=== PATIENT | male | born 1955 | race Caucasian/White ===

== ENCOUNTER 2016-12-06 19:52 | Inpatient (IN) ==
--- NOTE | 2016-12-06 20:20 | XRay Report ---
Chest, 2 views Comparison 11/07/2016 History is coughing The heart is normal in size. Hilar contours unchanged There are minimal patchy and linear densities in the left lung base impression: Minimal patchy left basilar infiltrate/atelectasis. Follow-up suggested PROCEDURE INTERPRETED AT [facility] DEPARTMENT OF RADIOLOGY Final Report Signed by: Dr. Cate Ortega
[2016-12-06] MEDS ORDERED: AZITHROMYCIN 250 MG TABLET PO STA (21:30)
[2016-12-06] MEDS ORDERED: cefTRIAXone 1,000 MG in SODIUM CHLORIDE 0.9% 100 ML IV STA (21:30)
--- NOTE | 2016-12-06 21:35 | Emergency Department Note ---
Arrival - Arrival Chief Complaint: Upper Respiratory Stated Complaint: shortness of breathe due to bronchitis ED Nursing Triage Note: Patient states that he has been having shortness of due to bronchitis, cough, congestion and runny nose. States that he get lighthead and becomes unable to ambulate due to shortness of breath. Patient was seen approximately 4 weeks ago in ER and by Dr. Schneider and diagnosed with acute bronchitis and sinus infection. States that he has had no improvement since then. Mode of Arrival: Ambulatory Time Seen by Provider: 12/06/16 20:07 - History of Present Illness HPI Narrative: This is a 61-year-old white male who had prostate surgery December 2015 and was intubated and says that since that time he is felt drainage in his chest. However approximately 6 weeks ago he developed a cough which has persisted since that time and which keeps him awake at night from sleep. He saw his family physician approximately 3 weeks ago and was treated with an antibiotic which was twice a day for 10 days and which he thinks was Levaquin which is because no improvement in his symptoms. He has had low-grade fever sweats and chills for the past 2 weeks. 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 His room air O2 sat has been slightly low at 95% on room air. He stopped smoking 15 years ago and has no prior lung disease. Allergies/Adverse Reactions: Allergies Allergy/AdvReac Type Severity Reaction Status Date / Time No Known Allergies Allergy Unverified 11/07/16 16:51 Home Medications: Home Medications Medication Instructions Recorded Confirmed Type Ranitidine Tab [Zantac Tab] 150 mg PO BEDTIME 12/06/16 12/06/16 History Review of System - Review of System Constitutional: Present: chills, diaphoresis, fever Eyes: Absent: redness, vision change, other Head/Ears/Nose/Throat: Present: nasal drainage. Absent: epistaxis Respiratory: Present: cough Cardiovascular: Present: dyspnea on exertion. Absent: chest pain Gastrointestinal: Absent: diarrhea, constipation Genitourinary male: Absent: dysuria, hematuria Musculoskeletal: Absent: joint swelling, lower back pain, leg pain Skin: Absent: change in color, change in hair/nails Neurological: Absent: numbness, paresthesias, confusion Psychiatric: Absent: anxiety, depression Endocrine: Absent: as per HPI, polydipsia, polyuria Hematological/Lymphatic: Absent: easy bruising, lymphadenopathy Allergic/Immunologic: Absent: urticaria, itchy eyes Medical,Surgical,& Family Hx - Medical History Gastrointestinal: History of: GERD - Social History Smoking Status: Never smoker Frequency of Alcohol Use: None Type of Drug Use: None Exam Vital Signs: Vital Signs Temperature 98.5 F 12/06/16 22:43 Pulse Rate 86 12/06/16 22:43 Respiratory Rate 18 12/06/16 22:43 Blood Pressure 132/79 12/06/16 22:43 O2 Sat by Pulse Oximetry 95 12/06/16 20:28 - Eye Eye exam: Present: PERRL, EOMI - ENT ENT exam: Present: normal exam, normal oropharynx - Neck Neck exam: Present: normal inspection, full ROM - Chest Chest inspection: Present: normal inspection - Respiratory Respiratory exam: Present: other (Rales noted bilaterally) - Cardiovascular Cardiovascular exam: Present: regular rate, normal rhythm - Abdominal Exam Abdominal exam: Present: soft, normal bowel sounds - Back Exam Back exam: Present: normal inspection, full ROM - Neurological Exam Neurological exam: Present: alert, oriented X3 - Psychiatric Psychiatric exam: Present: normal affect, normal mood - Skin Skin exam: Present: warm, dry Course Course Narrative: Because the CT scan showed nonspecific tree-in-bud interstitial inflammatory changes in both lungs consistent with bilateral, mycobacterial, fungal or viral bilateral multifocal pneumonia and because he is relatively hypoxic it seems reasonable the patient should be admitted to the hospital for pulmonary and infectious disease consultation. Results - Labs CBC & BMP: 12/06/16 21:34 12/06/16 21:34 Disposition Clinical Impression: Atypical pneumonia Additional Instructions: Because the CT scan showed nonspecific tree-in-bud interstitial inflammatory changes in both lungs consistent with bilateral, mycobacterial, fungal or viral bilateral multifocal pneumonia and because he is relatively hypoxic it seems reasonable the patient should be admitted to the hospital for pulmonary and infectious disease consultation.
[2016-12-06] MEDS ORDERED: AZITHROMYCIN 250 MG TABLET ONE (21:46)
[2016-12-06] MEDS ORDERED: cefTRIAXone 1,000 MG VIAL ONE (21:46)
[2016-12-06] MEDS ORDERED: SODIUM CHLORIDE 0.9% 100 ML IV ONE (21:47)
[2016-12-06 21:50] LABS: Basophils # 0.2 10*3/uL (0.0-0.2); Basophils % 1.6 % (0.0-0.8); Eosinophils # 0.8 10*3/uL (0.0-0.87); Eosinophils % 7.7 % (0.00-10.9); Hematocrit 43.1 VOL% (42.0-52.0); Hemoglobin 14.8 GM/DL (14.0-18.0); Immature Granulocytes % 0.3 %; Immature Granulocytes Absolute 0.03 #; Lymphocytes # 3.1 10*3/uL (1.4-4.0); Lymphocytes % 31.1 % (21.2-54.2); Mean Corpuscular HGB Conc 34.3 GM/DL (32-36); Mean Corpuscular Hemoglobin 30 PG (27-34); Mean Corpuscular Volume 87.4 FL (87-102); Mean Platelet Volume 9.4 FL (9.6-12.0); Monocytes # 0.7 10*3/uL (0.11-0.8); Neutrophils # 5.2 10*3/uL (1.4-7.4); Neutrophils % 52.3 % (38.7-73.9); Platelet Count 366 T/CUMM (130-400); Red Blood Count 4.93 MC/CUMM (3.8-5.5); Red Cell Distribution Width 12.1 % (9.3-17.3)
[2016-12-06 22:20] LABS: Alanine Aminotransferase 33 U/L (16-61); Albumin 3.3 G/DL (3.4-5.0); Alkaline Phosphatase 94 U/L (45-117); Aspartate Amino Transferase 22 U/L (0-37); Bilirubin,Total < 0.39 MG/DL (0.2-1.0); Blood Urea Nitrogen 20 MG/DL (7-18); Calcium 9.3 MG/DL (8.5-10.1); Glucose 116 MG/DL (74-106); Osmolality,Calculated 276.8 MOS/KG (273-304); Potassium 3.8 MMOL/L (3.5-5.1); Sodium 137 MMOL/L (136-145); Total Protein 7.2 G/DL (6.4-8.3)
[2016-12-06] MEDS ORDERED: ZALEPLON 5 MG CAPSULE PO PRN (23:29)
[2016-12-06] MEDS ORDERED: ONDANSETRON 4 MG/2 ML VIAL IV PRN (23:29)
[2016-12-06] MEDS ORDERED: ACETAMINOPHEN 325 MG TABLET PO PRN (23:29)
[2016-12-06] MEDS ORDERED: DOCUSATE SODIUM 100 MG CAPSULE PO PRN (23:29)
[2016-12-06] MEDS ORDERED: guaiFENesin/DM ER 600-30 MG TABLET PO PRN (23:29)
--- NOTE | 2016-12-06 23:34 | Hospitalist History & Physical ---
Assessment and Plan - Time spent with patient Time spent with patient: Greater than 30 minutes (1) Atypical pneumonia Status: Acute Assessment and plan: Continue Rocephin and Zithromax. Consult pulmonary. Follow-up blood and sputum cultures. Urine antigens for Legionella and Streptococcus. Pro-calcitonin ordered. Patient has failed outpatient antibiotic therapy with Levaquin by his primary care physician. Solu-Medrol has been added. Further recommendations depend on his response to therapy. Current Visit: Yes History of Present Illness Chief complaint: dyspnea, cough, fever/ chills History of present illness: Mr. Crump is a 61 year old male with a history of gastro-esophageal reflux disease treated with Zantac at night, presents to the emergency department with a 6 week history of shortness of breath and productive cough. Patient reports no previous lung problems. He states that his symptoms began after a stormy evening. He began having productive sputum and shortness of breath that worsens with exertion. Over the course of the last month he was seen in the emergency department and treated with steroids and antibiotics by his primary care physician as an outpatient. He has had a chest x-ray as an outpatient and today was seen in the emergency department with complaints of night sweats and continued cough with dyspnea. The patient reports every time he takes in a deep breath he has to cough. He also reports a feeling of tightness in his chest. He denies any sick contacts. He is unsure which antibiotic he was prescribed as an outpatient by his physician but notes that it was twice a day and lasted for 10 days. He reports completing a full course of antibiotics approximately [address] scan of the chest performed today in the emergency department is grossly abnormal. The patient has continued wheezing and rhonchi bilaterally. I was asked to admit the patient for further evaluation workup of his atypical pneumonia that has failed outpatient therapy. Home medications were reviewed and reconciled. He is a full code. Home Medications Medication Instructions Recorded Confirmed Type Ranitidine Tab [Zantac Tab] 150 mg PO BEDTIME 12/06/16 12/06/16 History Allergies Allergy/AdvReac Type Severity Reaction Status Date / Time No Known Allergies Allergy Unverified 11/07/16 16:51 Medical,Surgical,& Family Hx - Medical History Gastrointestinal: History of: GERD - Surgical History Reproductive Surgeries: Surgical HX of;: Prostate Surgery (For prostate cancer performed by Dr. Dawson) - Family History Family History: Reports;: Family Heart Disease Additional Family History: The patient is unsure of his family history due to being in foster care as a young child - Social History Smoking Status: Former smoker (Patient smoked approximately 1 pack per day for approximately 20-25 years.) Have you smoked in the last 12 months: No Frequency of Alcohol Use: None Type of Drug Use: None Marital Status: Lives With:: Spouse Functional capacity: independent ambulation 12 point system: reviewed and no additional remarkable complaints except as stated - Constitutional Constitutional: Present: as per HPI, night sweats - Respiratory Respiratory: Present: cough, dyspnea on exertion, wheezing Exam - Constitutional Vitals: Period Temp Pulse Resp BP Sys/Hazel Pulse Ox Last 24 Hr 98.5 F-99.1 F 86-107 18-22 124-135/63-95 95-95 Exam: Constitutional System: Mild distress. No tremulousness. Head: Normocephalic, atraumatic. Ears, Nose and Throat System: No pain or tenderness. No epistaxis or discharge Eyes System: Pupils equal, round, and reactive. Extraocular muscles intact. Neck: Supple, without adenopathy, No jugular venous distention. No thyromegaly, neck mass, or prior surgery apparent. Respiratory System: Chest with coarse rhonchi and wheezing bilaterally to auscultation. Cardiovascular System: Heart with regular rate and rhythm. No murmur. GI System: Abdomen soft, nontender. Normo active bowel sounds present. Musculoskeletal System: limbs with no pedal edema. Full distal pulses. Normal capillary refill. Neurological System: No discernable sensory deficit. No aphasia Psychiatric System: Conversation is rational Results - Labs CBC & BMP: 12/06/16 21:34 12/06/16 21:34 Lab Results: I have reviewed the past 24 hour labs - Diagnostic Findings Procedure: Chest x-ray: image reviewed by me, report reviewed by me, CT - chest : image reviewed by me, pending
[2016-12-07] MEDS: SODIUM CHLORIDE 0.9% 1,000 ML IV SCH ×2 (01:00→09:15)
[2016-12-07] MEDS: methylPREDNISolone SOD SUC 125 MG/2 ML VIAL IV SCH ×4 (01:03→18:54)
[2016-12-07] MEDS: ALBUTEROL/IPRATROPIUM 3 ML NEB RESP TX SCH ×4 (02:19→20:19)
[2016-12-07 06:10] LABS: Basophils # 0.1 10*3/uL (0.0-0.2); Basophils % 1.1 % (0.0-0.8); Eosinophils # 0.1 10*3/uL (0.0-0.87); Eosinophils % 1.3 % (0.00-10.9); Hematocrit 41.6 VOL% (42.0-52.0); Hemoglobin 14.1 GM/DL (14.0-18.0); Immature Granulocytes % 0.7 %; Immature Granulocytes Absolute 0.05 #; Lymphocytes % 13.5 % (21.2-54.2); Mean Corpuscular HGB Conc 33.9 GM/DL (32-36); Mean Corpuscular Hemoglobin 30 PG (27-34); Mean Corpuscular Volume 88.3 FL (87-102); Monocytes # 0.2 10*3/uL (0.11-0.8); Monocytes % 2.4 % (1.7-12.7); Neutrophils # 6.2 10*3/uL (1.4-7.4); Platelet Count 366 T/CUMM (130-400); Red Blood Count 4.71 MC/CUMM (3.8-5.5); Red Cell Distribution Width 12.3 % (9.3-17.3); White Blood Count 7.6 T/CUMM (4-12)
[2016-12-07 06:55] LABS: Calcium 9.7 MG/DL (8.5-10.1); Magnesium 2.3 MG/DL (1.8-2.4); Osmolality,Calculated 278.7 MOS/KG (273-304); Potassium 4.6 MMOL/L (3.5-5.1)
--- NOTE | 2016-12-07 07:21 | CT Report ---
CT chest pulmonary embolism Indication: Cough, shortness of breath with history of malignancy Comparison: None available Technique: Axial CT imaging of the chest is performed with intravenous contrast. Contrast dose is 80 cc of Omnipaque 350. Findings: No thrombus or other abnormality is identified in the pulmonary arteries or veins. The pulmonary vessel caliber is within normal limits. The heart, mediastinum and great vessels appear within normal limits. Small amounts of scattered diverticular nodular density are present in both lower lungs there is mild bronchial prominence. Lung parenchyma shows no evidence of airspace disease or abnormal density. No effusion or pneumothorax is present. Impression: No evidence of pulmonary thromboembolism increased interstitial reticular-nodular densities especially in the lower lungs, could indicate tendinitis/early multifocal pneumonia. This CT exam was performed using one or more the following dose reduction techniques: Automated exposure control, adjustment of the MA and/or KV according to patient size, or use of iterative reconstruction technique. PROCEDURE INTERPRETED AT [facility] DEPARTMENT OF RADIOLOGY Final Report Signed by: Dr. Gonzalo Rodriguez
--- NOTE | 2016-12-07 07:21 | XRay Report ---
Exam: XR chest 1V portable Date: 12/07/2016 4:00 AM Indication: Shortness of breath Comparison: 12/06/2016 Technical: AP Findings: The heart, mediastinum and bony structures reveal no acute findings. A few reticular nodular densities are present bilaterally in the lung owens. Impression: 1. No acute cardiopulmonary pathology. PROCEDURE INTERPRETED AT [facility] DEPARTMENT OF RADIOLOGY Final Report Signed by: Dr. Oliverio Malave
[2016-12-07] MEDS: PANTOPRAZOLE 40 MG TABLET PO SCH (09:12)
[2016-12-07] MEDS: ENOXAPARIN 40 MG/0.4 ML SYRINGE SUBCUT SCH (09:13)
--- NOTE | 2016-12-07 11:16 | Hospitalist Progress Note ---
Assessment and Plan - Time spent with patient Time spent with patient: Less than 30 minutes (1) GERD (gastroesophageal reflux disease) Status: Acute Assessment and plan: 61-year-old white male with history of GERD treated with Zantac admitted by the hospitalist service on 12/06/2016 with atypical pneumonia that failed outpatient antibiotic therapy with Levaquin. Patient continues to cough and is keeping him from sleeping well. Will try Robitussin with codeine to see if this will help. Patient is on duo nebs, methylprednisone, Zithromax, and Rocephin. For his GERD he has been restarted on his home medication. Patient has had mildly elevated blood sugars but this is most likely due to his the steroids. Will go ahead and check a hemoglobin A1c just in case. Patient is eating and drinking well so INT is IV and stop his IV fluids for now. Dr. Barragan will see and examine patient and further recommendations to follow. Current Visit: Yes (2) Hyperglycemia Status: Acute Current Visit: Yes (3) Atypical pneumonia Status: Acute Current Visit: Yes Hospitalist: Subjective Interval history: Patient feels about the same. He continues to have a hacking cough with some sputum production frequently. Patient states his has not slept in 3 weeks due to this cough. Exam - Constitutional Vitals: Period Temp Pulse Resp BP Sys/Hazel Pulse Ox Last 24 Hr 97.2 F-99.1 F 70-107 16-22 109-136/63-95 92-99 Exam: 61-year-old white male, mild distress due to coughing, alert and oriented Chest with bilateral wheezing and rhonchi CV regular rate and rhythm Abdomen soft and nontender Extremities no edema Results - Labs CBC & BMP: 12/07/16 05:06 12/07/16 05:06 Lab Results: I have reviewed the past 24 hour labs - Diagnostic Findings Procedure: Chest x-ray: report reviewed by me (. X-ray this morning shows no acute process), CT - chest: report reviewed by me (No PE but increased interstitial reticular nodular densities especially in the lower lungs indicating pneumonia)
[2016-12-07] MEDS: FAMOTIDINE 20 MG TABLET PO SCH (21:00)
[2016-12-08] MEDS: ALBUTEROL/IPRATROPIUM 3 ML NEB RESP TX SCH ×4 (00:32→20:51)
[2016-12-08] MEDS: methylPREDNISolone SOD SUC 125 MG/2 ML VIAL IV SCH ×4 (01:18→19:00)
[2016-12-08] MEDS: PANTOPRAZOLE 40 MG TABLET PO SCH (09:24)
[2016-12-08] MEDS: ENOXAPARIN 40 MG/0.4 ML SYRINGE SUBCUT SCH (09:25)
--- NOTE | 2016-12-08 11:16 | EKG Report ---
Stationary ECG Study [facility] Test Date: 12/08/2016 11:15:18 AM Pat Name: ANTHONY GRANT Department: Room: 326 Gender: M Director Of Group Sales: YOLANDA : 1955 Requested by: Cris Padilla Order Number: [id number] Reading MD: PRATEEK DILL Intervals [place] Rate: 112 P: 78 [place]: 140 QRS: 81 QRSD: 91 T: 74 QT: 318 QTc: 385 Interpretive Statements SINUS TACHYCARDIA ABNORMAL RHYTHM INCOMPLETE RIGHT BUNDLE BRANCH BLOCK Electronically Signed On 12-09-16 18:40:16 CDT by PRATEEK DILL [email or web address]
[2016-12-08] MEDS: guaiFENesin/CODEINE 5 ML LIQUID PO PRN ×2 (13:32→21:20)
--- NOTE | 2016-12-08 13:49 | Hospitalist Progress Note ---
Assessment and Plan - Time spent with patient Time spent with patient: Less than 30 minutes (1) GERD (gastroesophageal reflux disease) Status: Acute Assessment and plan: 61-year-old white male with history of GERD treated with Zantac admitted by the hospitalist service on 12/06/2016 with atypical pneumonia that failed outpatient antibiotic therapy with Levaquin. Patient continues to cough and is keeping him from sleeping well. Will try Robitussin with codeine to see if this will help. Patient is on duo nebs, methylprednisone, Zithromax, and Rocephin. For his GERD he has been restarted on his home medication. Patient has had mildly elevated blood sugars but this is most likely due to his the steroids. Will go ahead and check a hemoglobin A1c just in case. Patient is eating and drinking well so INT is IV and stop his IV fluids for now. Dr. Barragan will see and examine patient and further recommendations to follow. 12/08/2016 patient does feel and look a little bit better today. He still has some mild rails in the deep lung bases but is much improved from yesterday. He was tachycardic and EKG was obtained that shows sinus tachycardic with normal rhythm. He feels it is from the breathing treatments making his heart race. He is afebrile and his vital signs are stable. Patient is negative for flu and blood cultures are negative. His sputum culture is showing normal lyndsey at 24 hours. Patient is on Zithromax, ceftriaxone and Solu-Medrol. With this tachycardia will switch his duonebs to Xopenex. Dr. Ochoa from pulmonary will see the patient today. Patient's blood sugars have been mildly elevated but he is on steroids. His hemoglobin A1c though was 6.9. this most likely can be controlled by diet. Will get diabetes education to speak with him. Dr. Barragan will see and examine patient and further recommendations to follow. Current Visit: Yes (2) Hyperglycemia Status: Acute Current Visit: Yes (3) Atypical pneumonia Status: Acute Current Visit: Yes Hospitalist: Subjective Interval history: Patient states he does feel a little bit better today. His said he does not look quite as peaked as he did yesterday. He states he is still coughing but he has not taken any of the cough medicine with codeine. He agrees that he will try it. Patient is concerned about a "mold" pneumonia. He says the air conditioner at his work has a bunch of mold in it and he breathes it in all day. Exam - Constitutional Vitals: Period Temp Pulse Resp BP Sys/Hazel Pulse Ox Last 24 Hr 97.3 F-98.4 F 81-134 17-20 87-156/51-87 90-99 Exam: 61-year-old white male, mild distress due to coughing, alert and oriented Chest with bilateral wheezing and rhonchi CV tachycardic but regular Abdomen soft and nontender Extremities no edema Results - Labs CBC & BMP: 12/07/16 05:06 12/07/16 05:06 Lab Results: I have reviewed the past 24 hour labs - EKG EKG results: sinus rhythm EKG shows: tachycardia
[2016-12-08] MEDS ORDERED: ALBUTEROL/IPRATROPIUM 3 ML NEB RESP TX PRN (13:52)
[2016-12-08] MEDS ORDERED: ALBUTEROL 2.5 MG/3 ML NEB RESP TX SCH (15:00)
[2016-12-08] MEDS ORDERED: GLUCAGON 1 MG VIAL IM PRN (15:38)
[2016-12-08] MEDS ORDERED: DEXTROSE 50% 25 GM/50 ML SYRINGE IV PRN (15:38)
--- NOTE | 2016-12-08 15:54 | Pulmonology Consult Note ---
Assessment and Plan (1) Atypical pneumonia Status: Acute Assessment and plan: The patient has been having problems for 2 months and may have some very mild interstitial lung disease. Hopefully this will clear with steroids and bronchodilator therapy. Current Visit: Yes (2) GERD (gastroesophageal reflux disease) Status: Acute Assessment and plan: He will continue with antireflux measures. Current Visit: Yes History of Present Illness Chief complaint: Persistent coughing History of present illness: Mr. Crump is a 61 year old white male states he has been feeling somewhat badly for 2 months now. He has been having some cough and congestion and has had several rounds of antibiotics and is just not been able to clear up. He comes back in now with chest tightness and coughing with some sputum production. He does get a little short of breath at times. He does have some sinus drainage at times. He has a history of GE reflux but not having much symptoms now. He is a former smoker and quit about 15 years ago. He says he has not had any problems with his breathing before. He is a senior financial accountant and was in the . He came in with some mild wheezing in his chest x-ray does suggest some mild interstitial pneumonitis. His CT confirms this. He is relatively comfortable at present. Home Medications Medication Instructions Recorded Confirmed Type Ranitidine Tab [Zantac Tab] 150 mg PO BEDTIME 12/06/16 12/07/16 History Cefprozil [Cefprozil] 250 mg PO BID 12/08/16 12/08/16 History Montelukast Sodium [Montelukast 10 mg PO BID 12/08/16 12/08/16 History Sodium] Allergies Allergy/AdvReac Type Severity Reaction Status Date / Time No Known Allergies Allergy Unverified 11/07/16 16:51 - Constitutional Constitutional: Present: fatigue, fever(s). Absent: chills, weight loss - EENT Eyes: Absent: loss of vision Ears: Absent: decreased hearing Nose, mouth and throat: Present: nasal congestion. Absent: dysphagia, headache( s), sinus pressure - Cardiovascular Cardiovascular: Present: dyspnea on exertion. Absent: chest pain at rest, chest pain with activity, orthopnea, palpitations, PND - Respiratory Respiratory: Present: cough, wheezing, change in phlegm color. Absent: hemoptysis, pain on inspiration - Gastrointestinal Gastrointestinal: Present: heartburn. Absent: abdominal pain, change in bowel habits, dysphagia, nausea, vomiting - Genitourinary Genitourinary: Absent: difficulty urinating, dysuria, hematuria, urinary frequency - Musculoskeletal Musculoskeletal: Absent: arthralgias, myalgias - Neurological Neurological: Absent: abnormal speech, confusion, focal weakness, paresthesias - Psychiatric Psychiatric: Absent: anxiety, confusion Exam (Pulmonay) H&P - Constitutional Vitals: Period Temp Pulse Resp BP Sys/Hazel Pulse Ox Last 24 Hr 97.3 F-98.4 F 76-134 16-20 87-156/51-87 95-99 General appearance: normal weight, no acute distress - Head Head exam: Present: normal inspection, normocephalic - Eye Eye exam: Present: EOMI. Absent: scleral icterus Pupils: Present: IRAIS - ENT ENT exam: Present: other (He does have some mild nasal congestion) - Neck Neck exam: Present: normal inspection. Absent: lymphadenopathy, thyromegaly - Respiratory Respiratory exam: Present: other (He has some very minimal crackles in the bases.). Absent: accessory muscle use, wheezes - Cardiovascular Cardiovascular exam: Present: regular rate and rhythm. Absent: gallop, systolic murmur - GI/Abdominal GI/Abdominal exam: Present: normal bowel sounds, soft. Absent: distended, organomegaly, tenderness - Extremities Exam Extremities exam: Absent: calf tenderness, edema - Neurological Exam Neurological exam: Present: alert, oriented X3, CN II-XII intact. Absent: motor sensory deficit - Psychiatric Psychiatric exam: Present: normal affect - Skin Skin exam: Present: warm, dry. Absent: rash Medical,Surgical,& Family Hx - Medical History Gastrointestinal: History of: GERD - Surgical History Abdominal Surgeries: Surgical HX of: Colonoscopy (X2, last one was "two years ago") Reproductive Surgeries: Surgical HX of;: Prostate Surgery (For prostate cancer performed by Dr. Dawson) - Family History Family History: Reports;: Family Heart Disease - Social History Smoking Status: Former smoker Frequency of Alcohol Use: None Type of Drug Use: None Results - Labs CBC & BMP: 12/07/16 05:06 12/07/16 05:06 - Diagnostic Findings Procedure: Chest x-ray: image reviewed by me, report reviewed by me (Chest x- ray does suggest some very mild interstitial changes toward the bases.), CT - chest: image reviewed by me, report reviewed by me (CT suggests some mild interstitial changes .)
[2016-12-08] MEDS: INSULIN REGULAR 100 UNIT/ML SUBCUT SCH ×2 (16:36→21:20)
[2016-12-08] MEDS: LISINOPRIL 10 MG TABLET PO SCH (16:39)
[2016-12-08] MEDS: FAMOTIDINE 20 MG TABLET PO SCH (21:19)
[2016-12-09] MEDS: methylPREDNISolone SOD SUC 125 MG/2 ML VIAL IV SCH ×4 (00:50→18:34)
[2016-12-09] MEDS: ALBUTEROL/IPRATROPIUM 3 ML NEB RESP TX SCH ×4 (01:13→17:30)
[2016-12-09] MEDS: ALBUTEROL 2.5 MG/3 ML NEB RESP TX SCH ×5 (05:50→17:34)
[2016-12-09 05:57] LABS: Basophils % 0.1 % (0.0-0.8); Hematocrit 41.3 VOL% (42.0-52.0); Hemoglobin 13.8 GM/DL (14.0-18.0); Immature Granulocytes % 2.2 %; Immature Granulocytes Absolute 0.45 #; Lymphocytes # 1.3 10*3/uL (1.4-4.0); Lymphocytes % 6.1 % (21.2-54.2); Mean Corpuscular HGB Conc 33.4 GM/DL (32-36); Mean Corpuscular Hemoglobin 30 PG (27-34); Mean Corpuscular Volume 89.6 FL (87-102); Monocytes # 0.5 10*3/uL (0.11-0.8); Monocytes % 2.3 % (1.7-12.7); Neutrophils # 18.7 10*3/uL (1.4-7.4); Neutrophils % 89.3 % (38.7-73.9); Platelet Count 406 T/CUMM (130-400); Red Blood Count 4.61 MC/CUMM (3.8-5.5); Red Cell Distribution Width 12.5 % (9.3-17.3); White Blood Count 20.9 T/CUMM (4-12)
[2016-12-09 06:44] LABS: Calcium 9.6 MG/DL (8.5-10.1); Osmolality,Calculated 279.7 MOS/KG (273-304); Potassium 5.1 MMOL/L (3.5-5.1)
[2016-12-09 06:49] LABS: Band Neutrophils 1 % (0-10); Giant Platelets Few; Hypochromasia 1+; Lymphocytes 5 % (20-55); Platelet Estimate Adequate; Segmented Neutrophils 93 % (50-85); Total Cells Counted 100
--- NOTE | 2016-12-09 08:28 | Hospitalist Progress Note ---
Assessment and Plan - Time spent with patient Time spent with patient: Less than 30 minutes (1) GERD (gastroesophageal reflux disease) Status: Acute Assessment and plan: 61-year-old white male with history of GERD treated with Zantac admitted by the hospitalist service on 12/06/2016 with atypical pneumonia that failed outpatient antibiotic therapy with Levaquin. Patient continues to cough and is keeping him from sleeping well. Will try Robitussin with codeine to see if this will help. Patient is on duo nebs, methylprednisone, Zithromax, and Rocephin. For his GERD he has been restarted on his home medication. Patient has had mildly elevated blood sugars but this is most likely due to his the steroids. Will go ahead and check a hemoglobin A1c just in case. Patient is eating and drinking well so INT is IV and stop his IV fluids for now. Dr. Barragan will see and examine patient and further recommendations to follow. 12/08/2016 patient does feel and look a little bit better today. He still has some mild rails in the deep lung bases but is much improved from yesterday. He was tachycardic and EKG was obtained that shows sinus tachycardic with normal rhythm. He feels it is from the breathing treatments making his heart race. He is afebrile and his vital signs are stable. Patient is negative for flu and blood cultures are negative. His sputum culture is showing normal lyndsey at 24 hours. Patient is on Zithromax, ceftriaxone and Solu-Medrol. With this tachycardia will switch his duonebs to Xopenex. Dr. Ochoa from pulmonary will see the patient today. Patient's blood sugars have been mildly elevated but he is on steroids. His hemoglobin A1c though was 6.9. this most likely can be controlled by diet. Will get diabetes education to speak with him. Dr. Barragan will see and examine patient and further recommendations to follow. 12/09/2016 patient feels about the same. He continues to cough and the Robitussin-AC is not helping. Dr. Ochoa from pulmonary saw the patient yesterday and adjusted his bronchodilator therapy. Patient continues to be on 60 mg every 6 of steroids. His white count jumped up to 20.6 and this is most likely the reason. Continue Zithromax and ceftriaxone for now. Patient's blood pressures were elevated yesterday and a low-dose of lisinopril was started. His blood pressures are improved today. He also had a mildly elevated hemoglobin A1c yesterday and diabetes educators have been consulted. Dr. Barragan will see and examine patient and further recommendations to follow. Current Visit: Yes (2) Hyperglycemia Status: Acute Current Visit: Yes (3) Atypical pneumonia Status: Acute Current Visit: Yes Hospitalist: Subjective Interval history: Patient is not sure if he feels any better or not. He still continues to cough. Exam - Constitutional Vitals: Period Temp Pulse Resp BP Sys/Hazel Pulse Ox Last 24 Hr 97.0 F-98.1 F 76-121 16-20 113-156/64-87 90-99 Exam: 61-year-old white male, mild distress due to coughing, alert and oriented Chest with bilateral coarseness but improved from previous exam CV tachycardic but regular Abdomen soft and nontender Extremities no edema Results - Labs CBC & BMP: 12/09/16 04:14 12/09/16 04:14 Lab Results: I have reviewed the past 24 hour labs
[2016-12-09] MEDS: ENOXAPARIN 40 MG/0.4 ML SYRINGE SUBCUT SCH (08:51)
[2016-12-09] MEDS: PANTOPRAZOLE 40 MG TABLET PO SCH (08:51)
[2016-12-09] MEDS: LISINOPRIL 10 MG TABLET PO SCH (08:59)
[2016-12-09] MEDS: INSULIN REGULAR 100 UNIT/ML SUBCUT SCH ×4 (09:31→20:20)
--- NOTE | 2016-12-09 12:24 | Pulmonology Progress Note ---
Pulmonary - PN: Subj Interval history: Patient is a 61-year-old white man that has been having bronchitis and some mild interstitial pneumonitis. He says he is doing a little better but still coughing a lot. He does not look short of breath. He is getting steroids and antibiotics and respiratory therapy. He seems to be tolerating everything okay. At present he looks comfortable. Exam (Progress Note) - Constitutional Vitals: Period Temp Pulse Resp BP Sys/Hazel Pulse Ox Last 24 Hr 97.0 F-98.1 F 76-121 16-20 113-129/64-85 90-99 Exam: General appearance: normal weight, no acute distress, he looks comfortable sitting up in bed. - Head Head exam: Present: normal inspection, normocephalic - Eye Eye exam: Present: EOMI. Absent: scleral icterus Pupils: Present: IRAIS - ENT ENT exam: Present: other (He does have some mild nasal congestion) - Neck Neck exam: Present: normal inspection. Absent: lymphadenopathy, thyromegaly - Respiratory Respiratory exam: Present: He has good breath sounds bilaterally is moving air well with no wheezing. He has some minimal rhonchi in the bases. - Cardiovascular Cardiovascular exam: Present: regular rate and rhythm. Absent: gallop, systolic murmur - GI/Abdominal GI/Abdominal exam: Present: normal bowel sounds, soft. Absent: distended, organomegaly, tenderness - Extremities Exam Extremities exam: Absent: calf tenderness, edema - Neurological Exam Neurological exam: Present: alert, oriented X3, CN II-XII intact. Absent: motor sensory deficit - Psychiatric Psychiatric exam: Present: normal affect - Skin Skin exam: Present: warm, dry. Absent: rash Results - Labs CBC & BMP: 12/09/16 04:14 12/09/16 04:14 Assessment and Plan (1) Atypical pneumonia Status: Acute Assessment and plan: The patient has been having problems for 2 months and may have some very mild interstitial lung disease. Hopefully this will clear with steroids and bronchodilator therapy. He seems relatively stable at present. Current Visit: Yes (2) GERD (gastroesophageal reflux disease) Status: Acute Assessment and plan: He will continue with antireflux measures. Current Visit: Yes
[2016-12-09] MEDS: guaiFENesin/CODEINE 5 ML LIQUID PO PRN (16:50)
[2016-12-09] MEDS: FAMOTIDINE 20 MG TABLET PO SCH (20:21)
[2016-12-09] MEDS: AZITHROMYCIN 250 MG TABLET PO SCH (20:22)
[2016-12-10] MEDS: ALBUTEROL/IPRATROPIUM 3 ML NEB RESP TX SCH ×4 (00:26→19:28)
[2016-12-10] MEDS: methylPREDNISolone SOD SUC 125 MG/2 ML VIAL IV SCH ×4 (01:16→19:01)
[2016-12-10] MEDS: INSULIN REGULAR 100 UNIT/ML SUBCUT SCH ×4 (09:06→20:26)
[2016-12-10] MEDS: PANTOPRAZOLE 40 MG TABLET PO SCH (09:09)
[2016-12-10] MEDS: ENOXAPARIN 40 MG/0.4 ML SYRINGE SUBCUT SCH (09:09)
[2016-12-10] MEDS: FLUTICASONE 50 MCG NASAL SPRAY 16 GM BOTTLE BOTH NARES SCH ×2 (10:00→21:22)
--- NOTE | 2016-12-10 10:57 | Pulmonology Progress Note ---
Pulmonary - PN: Subj Interval history: Patient is a 61-year-old white man that has been having bronchitis and some mild interstitial pneumonitis. He says he is finally getting a good bit better with much less cough and congestion. He feels like his breathing is doing a little better. He is tolerating his medicines okay. Exam (Progress Note) - Constitutional Vitals: Period Temp Pulse Resp BP Sys/Hazel Pulse Ox Last 24 Hr 97.1 F-98.5 F 78-108 16-20 107-147/55-79 92-99 Exam: General appearance: normal weight, no acute distress, he looks comfortable sitting up in the chair and looks better. - Head Head exam: Present: normal inspection, normocephalic - Eye Eye exam: Present: EOMI. Absent: scleral icterus Pupils: Present: IRAIS - ENT ENT exam: Present: other (He does have some mild nasal congestion) - Neck Neck exam: Present: normal inspection. Absent: lymphadenopathy, thyromegaly - Respiratory Respiratory exam: Present: He has good breath sounds bilaterally is moving air well with no wheezing. He has some minimal rhonchi in the bases. He sounds a little better overall. His cough sounds much better. - Cardiovascular Cardiovascular exam: Present: regular rate and rhythm. Absent: gallop, systolic murmur - GI/Abdominal GI/Abdominal exam: Present: normal bowel sounds, soft. Absent: distended, organomegaly, tenderness - Extremities Exam Extremities exam: Absent: calf tenderness, edema - Neurological Exam Neurological exam: Present: alert, oriented X3, CN II-XII intact. Absent: motor sensory deficit - Psychiatric Psychiatric exam: Present: normal affect - Skin Skin exam: Present: warm, dry. Absent: rash Results - Labs CBC & BMP: 12/09/16 04:14 12/09/16 04:14 Assessment and Plan (1) Atypical pneumonia Status: Acute Assessment and plan: The patient has been having problems for 2 months and may have some very mild interstitial lung disease. Hopefully this will clear with steroids and bronchodilator therapy. He is feeling better and his cough is better. We will repeat a chest x-ray tomorrow. Current Visit: Yes (2) GERD (gastroesophageal reflux disease) Status: Acute Assessment and plan: He will continue with antireflux measures. Current Visit: Yes
--- NOTE | 2016-12-10 12:22 | Hospitalist Progress Note ---
Assessment and Plan - Time spent with patient Time spent with patient: Less than 30 minutes (1) GERD (gastroesophageal reflux disease) Status: Acute Assessment and plan: 61-year-old white male with history of GERD treated with Zantac admitted by the hospitalist service on 12/06/2016 with atypical pneumonia that failed outpatient antibiotic therapy with Levaquin. Patient continues to cough and is keeping him from sleeping well. Will try Robitussin with codeine to see if this will help. Patient is on duo nebs, methylprednisone, Zithromax, and Rocephin. For his GERD he has been restarted on his home medication. Patient has had mildly elevated blood sugars but this is most likely due to his the steroids. Will go ahead and check a hemoglobin A1c just in case. Patient is eating and drinking well so INT is IV and stop his IV fluids for now. Dr. Barragan will see and examine patient and further recommendations to follow. 12/08/2016 patient does feel and look a little bit better today. He still has some mild rails in the deep lung bases but is much improved from yesterday. He was tachycardic and EKG was obtained that shows sinus tachycardic with normal rhythm. He feels it is from the breathing treatments making his heart race. He is afebrile and his vital signs are stable. Patient is negative for flu and blood cultures are negative. His sputum culture is showing normal lyndsey at 24 hours. Patient is on Zithromax, ceftriaxone and Solu-Medrol. With this tachycardia will switch his duonebs to Xopenex. Dr. Ochoa from pulmonary will see the patient today. Patient's blood sugars have been mildly elevated but he is on steroids. His hemoglobin A1c though was 6.9. this most likely can be controlled by diet. Will get diabetes education to speak with him. Dr. Barragan will see and examine patient and further recommendations to follow. 12/09/2016 patient feels about the same. He continues to cough and the Robitussin-AC is not helping. Dr. Ochoa from pulmonary saw the patient yesterday and adjusted his bronchodilator therapy. Patient continues to be on 60 mg every 6 of steroids. His white count jumped up to 20.6 and this is most likely the reason. Continue Zithromax and ceftriaxone for now. Patient's blood pressures were elevated yesterday and a low-dose of lisinopril was started. His blood pressures are improved today. He also had a mildly elevated hemoglobin A1c yesterday and diabetes educators have been consulted. Dr. Barragan will see and examine patient and further recommendations to follow. 12/10/2016 patient feels a lot better today. He continues to cough but it is improved and he feels like things are breaking up in his chest. Patient's lungs are clear this morning with no signs of coarseness. He is on duo nebs, Proventil, Zithromax, Rocephin, and Solu-Medrol 60 mg every 6. His vital signs are stable his blood sugars look good and his blood pressures are okay. Dr. Ochoa wants to continue his present treatment and check a chest x-ray in the a.m. Patient is also been started on Flonase. [facility] home may be Sunday. Dr. Barragan will see and examine patient and further recommendations to follow. Current Visit: Yes (2) Hyperglycemia Status: Acute Current Visit: Yes (3) Atypical pneumonia Status: Acute Current Visit: Yes Hospitalist: Subjective Interval history: Patient feels like his turned a corner today and he is feeling much better. He still coughing but it seems to be less and he feels like everything is breaking up in his chest. Exam - Constitutional Vitals: Period Temp Pulse Resp BP Sys/Hazel Pulse Ox Last 24 Hr 97.1 F-98.5 F 75-108 16-20 107-147/55-79 93-99 Exam: 61-year-old white male, no acute distress, alert and oriented Chest clear CV regular rate and rhythm Abdomen soft and nontender Extremities no edema Results - Labs CBC & BMP: 12/09/16 04:14 12/09/16 04:14 Lab Results: I have reviewed the past 24 hour labs
[2016-12-10] MEDS: ALBUTEROL 2.5 MG/3 ML NEB RESP TX SCH (19:30)
[2016-12-10] MEDS: guaiFENesin/CODEINE 5 ML LIQUID PO PRN (19:52)
[2016-12-10] MEDS: FAMOTIDINE 20 MG TABLET PO SCH (20:22)
[2016-12-10] MEDS: AZITHROMYCIN 250 MG TABLET PO SCH (20:22)
[2016-12-11] MEDS: ALBUTEROL/IPRATROPIUM 3 ML NEB RESP TX SCH ×4 (00:49→19:43)
[2016-12-11] MEDS: methylPREDNISolone SOD SUC 125 MG/2 ML VIAL IV SCH ×4 (01:02→18:45)
[2016-12-11] MEDS: ALBUTEROL 2.5 MG/3 ML NEB RESP TX SCH ×4 (05:58→10:30)
[2016-12-11] MEDS: INSULIN REGULAR 100 UNIT/ML SUBCUT SCH ×4 (07:47→21:19)
[2016-12-11] MEDS: FLUTICASONE 50 MCG NASAL SPRAY 16 GM BOTTLE BOTH NARES SCH ×2 (08:15→21:17)
[2016-12-11] MEDS: PANTOPRAZOLE 40 MG TABLET PO SCH (08:16)
[2016-12-11] MEDS: ENOXAPARIN 40 MG/0.4 ML SYRINGE SUBCUT SCH (08:16)
--- NOTE | 2016-12-11 09:15 | Pulmonology Progress Note ---
Pulmonary - PN: Subj Interval history: Patient is a 61-year-old white man that has been having bronchitis and some mild interstitial pneumonitis. He says he is feeling better but still has some cough. His chest x-ray shows streaky atelectasis in the left base. He still has trouble clearing secretions. He is better but this is lasted for 2 months. He certainly has been extremely hard to clear up. We will go ahead with a bronchoscopy in the morning and clean out his airways. Then he should be able to go home soon after that. Exam (Progress Note) - Constitutional Vitals: Period Temp Pulse Resp BP Sys/Hazel Pulse Ox Last 24 Hr 97.2 F-98.1 F 67-96 16-20 112-135/59-75 93-100 Exam: General appearance: normal weight, no acute distress, he looks comfortable sitting up in the chair and looks better. He still has some coughing and mild shortness of breath. - Head Head exam: Present: normal inspection, normocephalic - Eye Eye exam: Present: EOMI. Absent: scleral icterus Pupils: Present: IRAIS - ENT ENT exam: Present: other (He does have some mild nasal congestion) - Neck Neck exam: Present: normal inspection. Absent: lymphadenopathy, thyromegaly - Respiratory Respiratory exam: Present: He has good breath sounds bilaterally is moving air well with no wheezing. He has some minimal rhonchi in the bases. He sounds a little better overall. His cough sounds much better. - Cardiovascular Cardiovascular exam: Present: regular rate and rhythm. Absent: gallop, systolic murmur - GI/Abdominal GI/Abdominal exam: Present: normal bowel sounds, soft. Absent: distended, organomegaly, tenderness - Extremities Exam Extremities exam: Absent: calf tenderness, edema - Neurological Exam Neurological exam: Present: alert, oriented X3, CN II-XII intact. Absent: motor sensory deficit - Psychiatric Psychiatric exam: Present: normal affect - Skin Skin exam: Present: warm, dry. Absent: rash Results - Labs CBC & BMP: 12/09/16 04:14 12/09/16 04:14 - Diagnostic Findings Procedure: Chest x-ray: image reviewed by me, report reviewed by me (Chest x- ray shows a little worsening atelectasis in the left base.) Assessment and Plan (1) Atypical pneumonia Status: Acute Assessment and plan: The patient has been having problems for 2 months and may have some very mild interstitial lung disease. He still has some cough and congestion. He is better but not clear completely. I will plan a bronchoscope in the morning and clear his airways. Current Visit: Yes (2) GERD (gastroesophageal reflux disease) Status: Acute Assessment and plan: He will continue with antireflux measures. Current Visit: Yes
--- NOTE | 2016-12-11 10:55 | Hospitalist Progress Note ---
Assessment and Plan (1) Atypical pneumonia Status: Acute Assessment and plan: continue with IV antibiotics, steroids and bronchodilators. Pulm wants to bronch him in am. Current Visit: Yes (2) GERD (gastroesophageal reflux disease) Status: Acute Assessment and plan: continue antireflux measures Current Visit: Yes (3) Hyperglycemia Status: Acute Assessment and plan: most likely steroid induced [id number] Continue with SSC and current regime Current Visit: Yes Hospitalist: Subjective Interval history: Patient seen, he is still coughing and complaining of congestion in his upper chest.. He was also worried about his steroids causing his blood sugar to go up. Pulm wants to bronch him in am. Exam - Constitutional Vitals: Period Temp Pulse Resp BP Sys/Hazel Pulse Ox Last 24 Hr 97.2 F-98.1 F 67-96 16-20 112-135/59-75 93-100 General appearance: no acute distress - Head Head exam: Present: normal inspection - Respiratory Respiratory exam: Present: rales - Cardiovascular Cardiovascular exam: Present: regular rate and rhythm - GI/Abdominal GI/Abdominal exam: Present: normal bowel sounds - Extremities Exam Extremities exam: Present: normal inspection Results - Labs CBC & BMP: 12/09/16 04:14 12/09/16 04:14 Lab Results: I have reviewed the past 24 hour labs
--- NOTE | 2016-12-11 10:56 | XRay Report ---
History: Pneumonia Date: 12/11/2016 Study: Chest x-ray PA and lateral Comparison exam: December 07, 2016 The cardiomediastinal silhouette and pulmonary vasculature are unremarkable. There is some increased platelike atelectatic change in the lingula compared to the previous study. The lungs are otherwise clear. There is no pleural effusion. Osseous structures are unchanged. Impression: Increased nonspecific mild platelike subsegmental atelectasis in the lingula compared to the previous study. The lungs are otherwise clear. The exam is otherwise unchanged PROCEDURE INTERPRETED AT [facility] DEPARTMENT OF RADIOLOGY Final Report Signed by: Dr. Vianca Mejía
[2016-12-11] MEDS: AZITHROMYCIN 250 MG TABLET PO SCH (21:19)
[2016-12-11] MEDS: FAMOTIDINE 20 MG TABLET PO SCH (21:22)
[2016-12-12] MEDS: methylPREDNISolone SOD SUC 125 MG/2 ML VIAL IV SCH ×4 (00:31→19:17)
[2016-12-12] MEDS: ALBUTEROL/IPRATROPIUM 3 ML NEB RESP TX SCH ×4 (00:36→19:20)
[2016-12-12 06:37] LABS: Basophils # 0.1 10*3/uL (0.0-0.2); Basophils % 0.3 % (0.0-0.8); Hemoglobin 14.6 GM/DL (14.0-18.0); Immature Granulocytes % 2.7 %; Immature Granulocytes Absolute 0.47 #; Lymphocytes # 1.7 10*3/uL (1.4-4.0); Lymphocytes % 9.6 % (21.2-54.2); Mean Corpuscular HGB Conc 34.8 GM/DL (32-36); Mean Corpuscular Hemoglobin 31 PG (27-34); Mean Corpuscular Volume 89.2 FL (87-102); Mean Platelet Volume 10.2 FL (9.6-12.0); Monocytes % 5.6 % (1.7-12.7); Neutrophils # 14.1 10*3/uL (1.4-7.4); Neutrophils % 81.8 % (38.7-73.9); Platelet Count 409 T/CUMM (130-400); Red Blood Count 4.71 MC/CUMM (3.8-5.5); Red Cell Distribution Width 12.3 % (9.3-17.3); White Blood Count 17.3 T/CUMM (4-12)
[2016-12-12 06:53] LABS: Calcium 9.2 MG/DL (8.5-10.1); Osmolality,Calculated 279.8 MOS/KG (273-304); Potassium 4.5 MMOL/L (3.5-5.1)
[2016-12-12] MEDS: INSULIN REGULAR 100 UNIT/ML SUBCUT SCH ×4 (07:29→21:08)
[2016-12-12] MEDS ORDERED: PROMETHAZINE 25 MG/1 ML VIAL IM ONE (07:30)
[2016-12-12] MEDS ORDERED: GLYCOPYRROLATE 0.4 MG/2 ML VIAL IM ONE (07:30)
[2016-12-12] MEDS ORDERED: MEPERIDINE 50 MG/1 ML VIAL IM ONE (07:30)
[2016-12-12] MEDS: ALBUTEROL 2.5 MG/3 ML NEB RESP TX SCH ×2 (07:40→07:41)
[2016-12-12] MEDS ORDERED: LIDOCAINE 2% 20 ML VIAL RESP TX ONE (08:00)
[2016-12-12] MEDS ORDERED: MIDAZOLAM 2 MG/2 ML VIAL IV ONE (08:00)
[2016-12-12] MEDS ORDERED: LIDOCAINE 1% 20 ML VIAL MISC INJ ONE (08:00)
[2016-12-12] MEDS ORDERED: LIDOCAINE 2% VISCOUS 100 ML BOTTLE SWISH/SPIT ONE (08:00)
--- NOTE | 2016-12-12 08:22 | Pulmonology Progress Note ---
Pulmonary - PN: Subj Interval history: Patient is a 61-year-old white man that has been having bronchitis and some mild interstitial pneumonitis. He says he is feeling better but still has some cough. His chest x-ray shows streaky atelectasis in the left base. He still has trouble clearing secretions. He is better but this is lasted for 2 months. He certainly has been extremely hard to clear up. He said he coughed a lot last night and could not clear anything out. He feels like his breathing is about the same. Will go ahead with a therapeutic bronchoscopy. Exam (Progress Note) - Constitutional Vitals: Period Temp Pulse Resp BP Sys/Hazel Pulse Ox Last 24 Hr 96.6 F-98.7 F 76-109 12-27 99-128/43-78 92-99 Exam: General appearance: normal weight, no acute distress, he looks comfortable sitting up in the chair and looks better. He still has some coughing and mild shortness of breath. - Head Head exam: Present: normal inspection, normocephalic - Eye Eye exam: Present: EOMI. Absent: scleral icterus Pupils: Present: IRAIS - ENT ENT exam: Present: other (He does have some mild nasal congestion) - Neck Neck exam: Present: normal inspection. Absent: lymphadenopathy, thyromegaly - Respiratory Respiratory exam: Present: He has good breath sounds bilaterally and is moving air well with no wheezing. He has some minimal rhonchi in the bases. He still has a harsh cough. - Cardiovascular Cardiovascular exam: Present: regular rate and rhythm. Absent: gallop, systolic murmur - GI/Abdominal GI/Abdominal exam: Present: normal bowel sounds, soft. Absent: distended, organomegaly, tenderness - Extremities Exam Extremities exam: Absent: calf tenderness, edema - Neurological Exam Neurological exam: Present: alert, oriented X3, CN II-XII intact. Absent: motor sensory deficit - Psychiatric Psychiatric exam: Present: normal affect - Skin Skin exam: Present: warm, dry. Absent: rash Results - Labs CBC & BMP: 12/12/16 05:16 12/12/16 05:16 Assessment and Plan (1) Atypical pneumonia Status: Acute Assessment and plan: The patient has been having problems for 2 months and may have some very mild interstitial lung disease. He still has some cough and congestion. Go ahead with a bronchoscopy today. Current Visit: Yes (2) GERD (gastroesophageal reflux disease) Status: Acute Assessment and plan: He will continue with antireflux measures. Current Visit: Yes
--- NOTE | 2016-12-12 08:25 | Operative Note ---
Date of procedure: 12/12/16 Pre-op diagnosis: Persistent cough Post-op diagnosis: other (Severe mucus plugging.) Procedure: The patient is a 61-year-old that has been coughing for 2 months now. He has been very hard to clear up. He has had some very mild atelectasis in the bases. Will proceed with a bronchoscope to check his airways. Timeout was performed to identify the patient. The patient is in the bronchoscopy lab. Preop: Demerol 50 mg, Phenergan 25 mg, Robinul 0.1 mg IM. Anesthesia: Versed 2 mg IVP, topical lidocaine. Procedure: The fiberoptic bronchoscope was passed transnasally through the vocal cords into the lungs. The bronchopulmonary segments were identified and specimens were obtained. Findings: The vocal cords, trachea, and minh are unremarkable. The main bronchi are open. There is some very thick mucus and plugs seen bilaterally that were hard to clear. Both lungs were washed and irrigated and the mucous plugging was cleared. Washings were sent for culture. There is some bronchitis present. The right upper lobe, right middle lobe, and right lower lobe are all open. The left upper lobe, lingula, and left lower lobe are open. Once the airways were cleared the procedure was stopped. He tolerated the procedure well without problems. Impression: Bronchitis with mucous plugging. Plan: We will continue inhaled steroids and bronchodilators. Anesthesia: conscious sedation Surgeon / Physician: Dmitri Ochoa Estimated blood loss: none Specimens: other (Washings were sent for culture and cytology) Condition: stable Disposition: floor Results - Labs CBC & BMP: 12/12/16 05:16 12/12/16 05:16 Discharge Plan - Discharge Medications No Action Montelukast Sodium [Montelukast Sodium] 10 mg PO BID Cefprozil [Cefprozil] 250 mg PO BID Ranitidine Tab [Zantac Tab] 150 mg PO BEDTIME - Follow Up or Referral - Forms/Instructions
[2016-12-12] MEDS ORDERED: MIDAZOLAM 2 MG/2 ML VIAL ONE (10:17)
[2016-12-12] MEDS: FLUTICASONE 50 MCG NASAL SPRAY 16 GM BOTTLE BOTH NARES SCH ×2 (10:37→21:04)
[2016-12-12] MEDS: PANTOPRAZOLE 40 MG TABLET PO SCH (10:38)
[2016-12-12] MEDS: ENOXAPARIN 40 MG/0.4 ML SYRINGE SUBCUT SCH (10:38)
[2016-12-12] MEDS: BUDESONIDE/FORMOTEROL 160-4.5 INHALER 6 GM INH SCH ×2 (10:38→21:03)
--- NOTE | 2016-12-12 14:35 | Hospitalist Progress Note ---
Assessment and Plan (1) Atypical pneumonia Status: Acute Assessment and plan: continue with IV antibiotics, steroids and bronchodilators.He had a bronchosopy this am. Continue Pulm's recommendations Current Visit: Yes (2) GERD (gastroesophageal reflux disease) Status: Acute Assessment and plan: continue antireflux measures Current Visit: Yes (3) Hyperglycemia Status: Acute Assessment and plan: most likely steroid induced [id number] Continue with SSC and current regime Current Visit: Yes Hospitalist: Subjective Interval history: Patient seen. He had a bronchoscopy this am.He feels some tightness in his chest. Exam - Constitutional Vitals: Period Temp Pulse Resp BP Sys/Hazel Pulse Ox Last 24 Hr 96.6 F-98.7 F 76-113 11-27 99-128/43-84 90-99 General appearance: no acute distress - Head Head exam: Present: normal inspection - Respiratory Respiratory exam: Present: clear to auscultation bilaterally - Cardiovascular Cardiovascular exam: Present: regular rate and rhythm - GI/Abdominal GI/Abdominal exam: Present: normal bowel sounds - Extremities Exam Extremities exam: Present: normal inspection Results - Labs CBC & BMP: 12/12/16 05:16 12/12/16 05:16 Lab Results: I have reviewed the past 24 hour labs
[2016-12-12] MEDS: FAMOTIDINE 20 MG TABLET PO SCH (21:07)
[2016-12-12] MEDS: AZITHROMYCIN 250 MG TABLET PO SCH (21:07)
[2016-12-13] MEDS: ALBUTEROL/IPRATROPIUM 3 ML NEB RESP TX SCH ×4 (00:10→19:13)
[2016-12-13] MEDS: methylPREDNISolone SOD SUC 125 MG/2 ML VIAL IV SCH ×2 (00:42→06:34)
--- NOTE | 2016-12-13 06:56 | Hospitalist Progress Note ---
Assessment and Plan (1) Atypical pneumonia Status: Acute Assessment and plan: continue with IV antibiotics, steroids and bronchodilators.He is s/p bronchoscopy Continue Pulm's recommendations Current Visit: Yes (2) GERD (gastroesophageal reflux disease) Status: Acute Assessment and plan: continue antireflux measures Current Visit: Yes (3) Hyperglycemia Status: Acute Assessment and plan: most likely steroid induced [id number] Continue with SSC and current regime Current Visit: Yes (4) Leukocytosis Status: Acute Assessment and plan: most likely reactive, no fever. WBc is improving, Cultures-negative Current Visit: Yes Hospitalist: Subjective Interval history: 61yr old with a history of atypical pneumonia s/p bronch yesterday. Pulm is following. This am he complained of some tightness and congestion in his chest but feels his secretion has broken loose. Exam - Constitutional Vitals: Period Temp Pulse Resp BP Sys/Hazel Pulse Ox Last 24 Hr 96.6 F-98.2 F 67-113 11-27 105-128/58-84 90-98 General appearance: no acute distress - Head Head exam: Present: normal inspection - Respiratory Respiratory exam: Present: rales - Cardiovascular Cardiovascular exam: Present: regular rate and rhythm - GI/Abdominal GI/Abdominal exam: Present: normal bowel sounds - Extremities Exam Extremities exam: Present: normal inspection - Neurological Exam Neurological exam: Present: alert, oriented X3 Results - Labs CBC & BMP: 12/12/16 05:16 12/12/16 05:16 Lab Results: I have reviewed the past 24 hour labs
[2016-12-13] MEDS: INSULIN REGULAR 100 UNIT/ML SUBCUT SCH ×4 (08:28→20:56)
[2016-12-13] MEDS: BUDESONIDE/FORMOTEROL 160-4.5 INHALER 6 GM INH SCH ×2 (08:40→20:56)
[2016-12-13] MEDS: PANTOPRAZOLE 40 MG TABLET PO SCH (08:41)
[2016-12-13] MEDS: ENOXAPARIN 40 MG/0.4 ML SYRINGE SUBCUT SCH (08:41)
[2016-12-13] MEDS: FLUTICASONE 50 MCG NASAL SPRAY 16 GM BOTTLE BOTH NARES SCH ×2 (08:41→20:56)
--- NOTE | 2016-12-13 10:07 | Pulmonology Progress Note ---
Pulmonary - PN: Subj Interval history: Patient is a 61-year-old white man that has been having bronchitis and some mild interstitial pneumonitis. He did have considerable mucus plugging and bronchitis on his bronchoscope. He says he still feels a little tight but he looks like he is breathing okay. His lungs do not sound that badly. This may take some time to clear up. So far nothing is growing on culture. Will change him to oral steroids and continue bronchodilator therapy. He should be able to go soon Exam (Progress Note) - Constitutional Vitals: Period Temp Pulse Resp BP Sys/Hazel Pulse Ox Last 24 Hr 96.8 F-98.2 F 67-110 18-88 105-123/58-78 91-99 Exam: General appearance: normal weight, no acute distress, he looks comfortable sitting up in the chair and looks better. He still feels a little tight in his chest but looks okay. - Head Head exam: Present: normal inspection, normocephalic - Eye Eye exam: Present: EOMI. Absent: scleral icterus Pupils: Present: IRAIS - ENT ENT exam: Present: other (He does have some mild nasal congestion) - Neck Neck exam: Present: normal inspection. Absent: lymphadenopathy, thyromegaly - Respiratory Respiratory exam: Present: He has good breath sounds bilaterally and is moving air well with no wheezing. His lungs sound better. - Cardiovascular Cardiovascular exam: Present: regular rate and rhythm. Absent: gallop, systolic murmur - GI/Abdominal GI/Abdominal exam: Present: normal bowel sounds, soft. Absent: distended, organomegaly, tenderness - Extremities Exam Extremities exam: Absent: calf tenderness, edema - Neurological Exam Neurological exam: Present: alert, oriented X3, CN II-XII intact. Absent: motor sensory deficit - Psychiatric Psychiatric exam: Present: normal affect - Skin Skin exam: Present: warm, dry. Absent: rash Results - Labs CBC & BMP: 12/12/16 05:16 12/12/16 05:16 Assessment and Plan (1) Atypical pneumonia Status: Acute Assessment and plan: The patient has been having problems for 2 months and may have some very mild interstitial lung disease. He did have considerable bronchitis and mucous plugging on his bronchoscope. Will leave him on steroids for little while. Current Visit: Yes (2) GERD (gastroesophageal reflux disease) Status: Acute Assessment and plan: He will continue with antireflux measures. Current Visit: Yes
[2016-12-13] MEDS: predniSONE 20 MG TABLET PO SCH (11:13)
--- NOTE | 2016-12-13 12:16 | Pathology Report from [facility] ---
[facility] – [place] ACCESSION # : [id number] PATIENT NAME : Wyatt Crump ORDERING DR : TJ LANDA MD CLINICAL HX: Pneumonia, chronic cough POST-OP DX: Same SPECIMEN INFO: Washing,Bronchial,LASHA - 15 mls greyish white, mucoid CLASS: II CLASS COMMENTS: Benign respiratory epithelium with inflammation and squamous metaplasia.CELL BLOCK: Same CLASS LEGEND: CLASS 0 Material inadequate for diagnosis because of (see comment) CLASS I Absence of atypical or abnormal cells CLASS II Atypical Cytology but no evidence of malignancy CLASS III Cytology suggestive of but not conclusive for malignancy CLASS IV Cytology strongly suggestive of malignancy CLASS V Cytology conclusive for malignancy COLLECTED DATE: 12/12/2016 [facility] REPORT DATE: 12/13/2016 ELECTRONICALLY SIGNED BY: Brandon Banks M.D. 12/13/2016 - 10:13:11 [email or web address]
[2016-12-13] MEDS: POTASSIUM IODIDE ORAL SOLN 1,000 MG/ML BOTTLE PO SCH ×2 (15:17→20:56)
[2016-12-13] MEDS: AZITHROMYCIN 250 MG TABLET PO SCH (20:56)
[2016-12-13] MEDS: FAMOTIDINE 20 MG TABLET PO SCH (20:56)
[2016-12-14] MEDS: ALBUTEROL/IPRATROPIUM 3 ML NEB RESP TX SCH ×3 (01:29→13:11)
[2016-12-14 05:21] LABS: Basophils # 0.1 10*3/uL (0.0-0.2); Basophils % 0.5 % (0.0-0.8); Eosinophils % 0.2 % (0.00-10.9); Hematocrit 40.6 VOL% (42.0-52.0); Immature Granulocytes % 5.6 %; Immature Granulocytes Absolute 1.09 #; Lymphocytes # 3.2 10*3/uL (1.4-4.0); Lymphocytes % 16.3 % (21.2-54.2); Mean Corpuscular HGB Conc 34.5 GM/DL (32-36); Mean Corpuscular Hemoglobin 31 PG (27-34); Mean Corpuscular Volume 88.6 FL (87-102); Mean Platelet Volume 9.8 FL (9.6-12.0); Monocytes # 2.1 10*3/uL (0.11-0.8); Monocytes % 10.6 % (1.7-12.7); Neutrophils # 13.1 10*3/uL (1.4-7.4); Neutrophils % 66.8 % (38.7-73.9); Platelet Count 355 T/CUMM (130-400); Red Blood Count 4.58 MC/CUMM (3.8-5.5); Red Cell Distribution Width 12.5 % (9.3-17.3); White Blood Count 19.5 T/CUMM (4-12)
[2016-12-14 05:46] LABS: Hypochromasia 1+
[2016-12-14 05:47] LABS: Giant Platelets Few; Platelet Estimate Adequate
[2016-12-14 05:50] LABS: Calcium 8.8 MG/DL (8.5-10.1); Osmolality,Calculated 280.5 MOS/KG (273-304); Potassium 4.1 MMOL/L (3.5-5.1)
[2016-12-14] MEDS: INSULIN REGULAR 100 UNIT/ML SUBCUT SCH ×2 (07:28→12:17)
[2016-12-14] MEDS: BUDESONIDE/FORMOTEROL 160-4.5 INHALER 6 GM INH SCH (08:09)
[2016-12-14] MEDS: FLUTICASONE 50 MCG NASAL SPRAY 16 GM BOTTLE BOTH NARES SCH (08:10)
[2016-12-14] MEDS: POTASSIUM IODIDE ORAL SOLN 1,000 MG/ML BOTTLE PO SCH (08:10)
[2016-12-14] MEDS: ENOXAPARIN 40 MG/0.4 ML SYRINGE SUBCUT SCH (08:11)
[2016-12-14] MEDS: predniSONE 20 MG TABLET PO SCH (08:11)
[2016-12-14] MEDS: PANTOPRAZOLE 40 MG TABLET PO SCH (08:11)
--- NOTE | 2016-12-14 08:57 | XRay Report ---
XR chest 2V Date: 12/14/2016 4:00 AM History: Cough, pneumonia Comparison: 12/11/2016 Technique: PA and lateral chest Findings: The heart is normal in size. Significant reduction in the parenchymal findings in the lingula. The lungs remain overexpanded. Stable mediastinum and osseous structures. Impression: Reduced atelectasis/infiltration in the lingula consistent with improved pneumonia. Persistent minimal overexpansion of the lungs. PROCEDURE INTERPRETED AT [facility] DEPARTMENT OF RADIOLOGY Final Report Signed by: Dr. Regine Barber
--- NOTE | 2016-12-14 09:29 | Pulmonology Progress Note ---
Pulmonary - PN: Subj Interval history: Patient is a 61-year-old white man that has been having bronchitis and some mild interstitial pneumonitis. He did have considerable mucus plugging and bronchitis on his bronchoscope. He says he still feels a little tight but he looks like he is breathing okay. He had a fairly good night and his breathing is better now. His lungs sound much better and his chest x-ray is clear now. He does have some yeast growing on culture. Overall he is much better. Exam (Progress Note) - Constitutional Vitals: Period Temp Pulse Resp BP Sys/Hazel Pulse Ox Last 24 Hr 96.9 F-98.3 F 73-105 16-20 113-135/67-80 93-99 Exam: General appearance: normal weight, no acute distress, he looks comfortable sitting up in the chair and looks better. He is breathing much better now. - Head Head exam: Present: normal inspection, normocephalic - Eye Eye exam: Present: EOMI. Absent: scleral icterus Pupils: Present: IRAIS - ENT ENT exam: Present: other (He does have some mild nasal congestion) - Neck Neck exam: Present: normal inspection. Absent: lymphadenopathy, thyromegaly - Respiratory Respiratory exam: Present: He has good breath sounds bilaterally and is moving air well with no wheezing. His lungs sound clear. - Cardiovascular Cardiovascular exam: Present: regular rate and rhythm. Absent: gallop, systolic murmur - GI/Abdominal GI/Abdominal exam: Present: normal bowel sounds, soft. Absent: distended, organomegaly, tenderness - Extremities Exam Extremities exam: Absent: calf tenderness, edema - Neurological Exam Neurological exam: Present: alert, oriented X3, CN II-XII intact. Absent: motor sensory deficit - Psychiatric Psychiatric exam: Present: normal affect - Skin Skin exam: Present: warm, dry. Absent: rash Results - Labs CBC & BMP: 12/14/16 04:35 12/14/16 04:35 - Diagnostic Findings Procedure: Chest x-ray: image reviewed by me, report reviewed by me (Chest x- ray is clear now.) Assessment and Plan (1) Atypical pneumonia Status: Acute Assessment and plan: The patient has been having problems for 2 months and may have some very mild interstitial lung disease. He did have considerable bronchitis and mucous plugging on his bronchoscope. Will leave him on steroids for little while. He does have yeast growing out on washings. Will add Diflucan. His chest x-ray is clear now. He can go home and will check PFTs in the office in a few weeks. Current Visit: Yes (2) GERD (gastroesophageal reflux disease) Status: Acute Assessment and plan: He will continue with antireflux measures. Current Visit: Yes
[2016-12-14] MEDS ORDERED: FLUCONAZOLE 100 MG TABLET PO SCH (09:30)
[2016-12-14 13:05] VITALS: BP 136/82
--- NOTE | 2016-12-14 13:35 | Hospitalist Progress Note ---
Exam - Constitutional Vitals: Period Temp Pulse Resp BP Sys/Hazel Pulse Ox Last 24 Hr 97.1 F-98.3 F 73-105 14-20 113-136/67-82 93-99 Results - Labs CBC & BMP: 12/14/16 04:35 12/14/16 04:35
--- NOTE | 2016-12-14 13:46 | Discharge Summary ---
Hospital Course - Hospital Course Hospital Course: Mr. Crump is a 61 year old male with a history of gastro-esophageal reflux disease treated with Zantac at night, presents to the emergency department with a 6 week history of shortness of breath and productive cough. Patient reports no previous lung problems but works in [employer] at [place]. He sees Dr. Schneider and took antibiotic for 10 days without improvement. He was initially placed on azithromycin and Rocephin. Dr. Ochoa from pulmonary was consulted. CT scan of the chest showed no evidence of pulmonary thrombosis but increased interstitial reticular-nodular densities in bilateral lower lobes of his lung were noted. A bronchoscopy was performed by Dr. Ochoa on December 12, 2016 which grew out yeast. Patient also had a lot of mucus plugging and evidence of bronchitis on bronchoscope. Influenza was negative. Blood cultures 2 were negative no growth. Urine for Legionella was negative, urine for strep pneumonia was negative. Patient's white count on admission was 10 and is slowly creeped up to 19.5. His chest x-ray is now clear and feels that he can go home with follow-up with him with PFTs in 2 weeks. He would like him to have Diflucan and remain on steroids until seen by him. Patient is to continue on medicines for reflux. He is not requiring any home oxygen but will need a nebulizer machine for home and should not return to work until cleared by Dr. Ochoa. - Time spent with patient Time with patient DS: Greater than 30 minutes (45 min) Specialty Discharge - Follow Up or Referrals Follow up with: Dmitri Ochoa MD [Physician] - Discharge Plan - Discharge Data Disposition: Disch To Home/Self Care Condition at Discharge: Stable Discharge Diet: heart healthy Activity: resume usual activities as tolerated Hygiene: no restrictions Weight Bearing at Discharge: full weight bearing - Discharge Medications New Budesonide/Formoterol 160-4.5 [Symbicort 160-4.5] 2 puff INH BID #1 inhaler Fluticasone 50 Mcg Nasal Sterling [Flonase Nasal Sterling] 1 spray BOTH NARES BID # 1 spray guaiFENesin/CODEINE [Robitussin AC] 10 ml PO Q4H PRN #50 ml PRN Reason: Cough Potassium Iodide Oral Soln [Sski] 600 mg PO TID #1 bottle predniSONE TAB [PredniSONE] 40 mg PO DAILY #30 tablet Fluconazole Tab [Diflucan Tab] 200 mg PO DAILY #14 tablet Albuterol/Ipratropium Neb [Duoneb] 3 ml RESP TX RT Q6H #120 vial Pantoprazole Tab [Protonix Tab] 40 mg PO BEDTIME #30 tablet Continue Montelukast Sodium 10 mg PO BID Discontinued Cefprozil [Cefprozil] 250 mg PO BID Ranitidine Tab [Zantac Tab] 150 mg PO BEDTIME - Follow Up or Referral Follow Up: Dmitri Ochoa MD [Physician] - 1 Week (make sure this is the correct doctor ) Tacos Schneider [REFERRING DOCTOR/PRACTITIONER] - 1 Week - Forms/Instructions Additional Discharge Instructions: dont return to work till cleared by Dr. Ochoa Exam - Constitutional Vitals: Period Temp Pulse Resp BP Sys/Hazel Pulse Ox Last 24 Hr 97.1 F-98.3 F 73-105 14-20 113-136/67-82 93-99 General appearance: normal weight, no acute distress - Respiratory Respiratory exam: Present: clear to auscultation bilaterally, rhonchi. Absent: wheezes - Cardiovascular Cardiovascular exam: Present: regular rate and rhythm. Absent: systolic murmur - GI/Abdominal GI/Abdominal exam: Present: normal bowel sounds, soft. Absent: tenderness - Extremities Exam Extremities exam: Present: normal inspection, normal capillary refill - Neurological Exam Neurological exam: Present: alert, oriented X3 Discharge Results Procedures and tests throughout hospitalization: Pending Orders 12/12/16 08:22 AFB Culture/Smears Routine Bronchial Washings C & Gram St Routine Fungal Culture w/ Prep Routine 12/12/16 08:26 Cytology Request Routine 12/15/16 04:00 CBC [Comp Blood Count Auto Diff] IN AM Labs on day of discharge: Labs from last 24 hours 12/14/16 12/14/16 12/14/16 11:29 06:45 04:35 WBC RBC Hgb Hct MCV MCH MCHC RDW Plt Count MPV Neut % (Auto) Lymph % (Auto) [place] % (Auto) Eos % (Auto) Baso % (Auto) Neut # (Auto) Lymph # (Auto) [place] # (Auto) Eos # (Auto) Baso # (Auto) Immature Gran % Nucleated RBC % Immature Gran # Nucleated RBCs # Platelet Estimate Giant Platelets Immature Plt Fraction Hypochromasia Sodium 139 Potassium 4.1 Chloride 101 Carbon Dioxide 29 Anion Gap 13.1 BUN 23 H Creatinine 1.00 GFR Calculation 97 BUN/Creatinine Ratio 23.00 H Glucose 103 POC Glucose 163 H 91 Calculated Osmolality 280.5 Calcium 8.8 12/14/16 12/13/16 12/13/16 04:35 20:02 16:10 WBC 19.5 H RBC 4.58 Hgb 14.0 Hct 40.6 L MCV 88.6 MCH 31 MCHC 34.5 RDW 12.5 Plt Count 355 MPV 9.8 Neut % (Auto) 66.8 Lymph % (Auto) 16.3 L [place] % (Auto) 10.6 Eos % (Auto) 0.2 Baso % (Auto) 0.5 Neut # (Auto) 13.1 H Lymph # (Auto) 3.2 [place] # (Auto) 2.1 H Eos # (Auto) 0.0 Baso # (Auto) 0.1 Immature Gran % 5.6 Nucleated RBC % 0.0 Immature Gran # 1.09 Nucleated RBCs # 0.00 Platelet Estimate Adequate Giant Platelets Few Immature Plt Fraction 0.0 Hypochromasia 1+ Sodium Potassium Chloride Carbon Dioxide Anion Gap BUN Creatinine GFR Calculation BUN/Creatinine Ratio Glucose POC Glucose 243 H 238 H Calculated Osmolality Calcium Preliminary micro results at discharge 12/12/16 08:22 Fungal Culture - Preliminary Bronchial Washings Yeast 12/12/16 08:22 Bronchial Washings Culture - Preliminary Bronchial Washings Yeast DS: Provider Date of admission: 12/07/16 11:35 Primary care physician: Randy Schneider DO Attending physician on admission: Evan Lenz MD Consults: 12/06/16 23:29 Consult to Physician [CONS] Routine Comment: Pneumonia Consulting Provider: Dmitri Ochoa Consulting Provider Notified: Yes When should Consulting Provider be notified: Now Person Notified: zoila walters Date Notified: 12/08/16 Time Notified: 08:47 12/07/16 01:41 Consult to Pastoral Services [CONS] Routine Comment: Pastoral Screen: Request Pet Technologist Visit Pastoral Screen Source of Request: Patient 12/08/16 13:51 Consult to Diabetes Center, Educator [CONS] Routine Reason for Minesweeping Officer: Diet Consult Comment: mild elev hgbaic 12/08/16 15:38 Consult to Diabetes Center, Educator [CONS] Routine Reason for Minesweeping Officer: Diabetes Education 12/09/16 09:44 Consult to Case Mgmt/Social Srvs [CONS] Routine Reason for Case Mgmt/Social Srvs: Discharge Planning Equipment Consult Comment: PLEASE CHECK TO SEE IF PATIENT QUALIFIES FOR HOME OXYGEN Discharging clinician: Sarah Oconnell MD
--- NOTE | 2016-12-19 08:28 | Physician Query Form ---
CLICK EDIT DOCUMENT TO SELECT QUERY ANSWER --> OK --> SIGN Damari Schmitz RN Clinical Side Sawyer W) [phone] (f) [phone] [email or web address] PROVIDERS: Make your selection(s) from the choices in EACH section by typing an "x" and enter comments in the comment section. Please use your independent medical judgment in providing your response. This request does not imply that any particular answer is desired or expected. CLINICAL INDICATORS: (Providers should not edit this section) Based on documentation of "Acute atypical pneumonia" "A bronchoscopy was performed by Dr. Ochoa on December 12, 2016 which grew out yeast" Treated in hospital with PO Diflucan. Also sent home on PO Diflucan. Based on the above, could you clarify the appropriate diagnosis, if significant , that supports the above abnormalities and additional evaluation, monitoring, and/or treatment rendered: (x ) Treated for Nichole Pneumonia ( ) NOT Treated for Nichole Pneumonia ( ) Other, please specify: ( ) Clinically unable to determine COMMENTS: PLEASE ALSO DOCUMENT RESPONSE IN PROGRESS NOTES AND/OR DISCHARGE SUMMARY Use of terms such as suspected, likely, or probable (associated with a specific diagnosis that is being evaluated, monitored, or treated as if it exists) are acceptable and can be restated in the discharge summary if not ruled out. MTDD
--- NOTE | 2016-12-19 08:32 | Physician Query Form ---
CLICK EDIT DOCUMENT TO SELECT QUERY ANSWER --> OK --> SIGN Damari Schmitz RN Clinical Addiction Nurse W) [phone] (f) [phone] [email or web address] PROVIDERS: Make your selection(s) from the choices in EACH section by typing an "x" and enter comments in the comment section. Please use your independent medical judgment in providing your response. This request does not imply that any particular answer is desired or expected. CLINICAL INDICATORS: (Providers should not edit this section) Based on documentation of "Had a lot of mucus plugging" "There is some very thick mucus and plugs seen bilaterally that were hard to clear. Both lungs were washed and irrigated and the mucus plugging was cleared." Based on the above, could you clarify the location and type biopsy, if done? BRONCHIAL: (x ) Bilateral Bronchi, all lobes ( ) Left Main Bronchus ( ) Left Upper Lobe Bronchus ( ) Left Lower Lobe Bronchus ( ) Right Main Bronchus ( ) Right Upper Lobe Bronchus ( ) Right Middle Lobe Bronchus ( ) Right Lower Lobe Bronchus ( ) Bronchial Lingula LUNG: (x ) Bilateral Lungs, all lobes ( ) Left Lung, all lobes ( ) Left Upper Lobe Lung ( ) Left Lower Lobe Lung ( ) Right Lung, all lobes ( ) Right Upper Lobe Lung ( ) Right Middle Lobe Lung ( ) Right Lower Lobe Lung ( ) Lung Lingula ( ) Other, please specify: ( ) Clinically unable to determine COMMENTS: PLEASE ALSO DOCUMENT RESPONSE IN PROGRESS NOTES AND/OR DISCHARGE SUMMARY Use of terms such as suspected, likely, or probable (associated with a specific diagnosis that is being evaluated, monitored, or treated as if it exists) are acceptable and can be restated in the discharge summary if not ruled out. MTDD
== END 2016-12-14 15:53 | disposition home or self-care (01) | DRG 178 ==
LOC: N.EDINP 19:52 → N.ED 19:52 → SUATTDRO 23:28 → N.3E 12-07 00:16 → SUATTDRO 12-07 11:35
PROVIDERS: ADMIT Family Medicine; ATTEND Internal Medicine

== ENCOUNTER 2019-05-24 11:56 | Observation (INO) ==
[2019-05-24 12:46] LABS: Basophils # 0.1 10*3/uL (0.0-0.2); Basophils % 0.5 % (0.0-0.8); Eosinophils # 0.2 10*3/uL (0.0-0.87); Eosinophils % 0.9 % (0.00-10.9); Hematocrit 48.1 VOL% (42.0-52.0); Hemoglobin 15.7 GM/DL (14.0-18.0); Immature Granulocytes % 0.6 %; Immature Granulocytes Absolute 0.12 #; Lymphocytes % 15.1 % (21.2-54.2); Mean Corpuscular HGB Conc 32.6 GM/DL (32-36); Mean Corpuscular Volume 91.8 FL (87-102); Mean Platelet Volume 10.6 FL (9.6-12.0); Monocytes % 7.2 % (1.7-12.7); Neutrophils % 75.7 % (38.7-73.9); Platelet Count 294 T/CUMM (130-400); Red Blood Count 5.24 MC/CUMM (3.8-5.5); Red Cell Distribution Width 12.3 % (9.3-17.3); White Blood Count 19.6 T/CUMM (4-12)
[2019-05-24] MEDS ORDERED: cefTRIAXone 1,000 MG in SODIUM CHLORIDE 0.9% 100 ML IV STA (12:59)
[2019-05-24] MEDS ORDERED: cefTRIAXone 1,000 MG VIAL ONE (13:00)
[2019-05-24 13:15] LABS: Apearance,Urine CLEAR (Clear); Bilirubin,Urine Negative (Negative); Blood, Urine Negative (Negative); Glucose,Urine (UA) Negative (Negative); Ketones,Urine Negative (Negative); Mucus,Urine Occasional /LPF (Occasional); Nitrite,Urine Negative (Negative); Protein,Urine Negative; Squamous Epithelial Cell,Urine Occasional /HPF (0-10); Urine Color Yellow (Yellow); Urine Specific Gravity 1.019 (1.001-1.035); Urine Urobilinogen < 2.0 EU/DL (0.2-1.0)
[2019-05-24 13:21] LABS: Albumin 3.9 G/DL (3.4-5.0); Bilirubin,Total 1.3 MG/DL (0.2-1.0); Calcium 9.4 MG/DL (8.5-10.1); Total Protein 7.8 G/DL (6.4-8.3)
[2019-05-24] MEDS ORDERED: metroNIDAZOLE INJ 500 MG in PREMIX 1 EACH IV STA (14:01)
[2019-05-24] MEDS ORDERED: ZALEPLON 5 MG CAPSULE PO PRN (15:12)
[2019-05-24] MEDS ORDERED: ONDANSETRON 4 MG/2 ML VIAL IV PRN (15:12)
[2019-05-24] MEDS ORDERED: MORPHINE 4 MG/1 ML VIAL IV PRN (15:16)
[2019-05-24] MEDS: DEXTROSE 5% NACL 0.9% 1,000 ML IV SCH (17:08)
[2019-05-24] MEDS: CIPROFLOXACIN INJ 400 MG in PREMIX 1 EACH IV SCH (17:12)
[2019-05-24] MEDS: ENOXAPARIN 40 MG/0.4 ML SYRINGE SUBCUT SCH (21:14)
[2019-05-24] MEDS: metroNIDAZOLE INJ 500 MG in PREMIX 1 EACH IV SCH (21:15)
[2019-05-25] MEDS: CIPROFLOXACIN INJ 400 MG in PREMIX 1 EACH IV SCH ×2 (03:09→18:20)
[2019-05-25] MEDS: DEXTROSE 5% NACL 0.9% 1,000 ML IV SCH ×3 (03:12→18:19)
[2019-05-25 07:14] LABS: Basophils # 0.1 10*3/uL (0.0-0.2); Basophils % 0.6 % (0.0-0.8); Eosinophils # 0.2 10*3/uL (0.0-0.87); Eosinophils % 1.7 % (0.00-10.9); Hemoglobin 13.7 GM/DL (14.0-18.0); Immature Granulocytes % 0.4 %; Immature Granulocytes Absolute 0.05 #; Lymphocytes # 3.3 10*3/uL (1.4-4.0); Mean Corpuscular HGB Conc 32.6 GM/DL (32-36); Mean Corpuscular Volume 90.1 FL (87-102); Mean Platelet Volume 11.1 FL (9.6-12.0); Monocytes % 10.5 % (1.7-12.7); Neutrophils % 60.8 % (38.7-73.9); Platelet Count 251 T/CUMM (130-400); Red Blood Count 4.66 MC/CUMM (3.8-5.5); Red Cell Distribution Width 12.3 % (9.3-17.3); White Blood Count 12.7 T/CUMM (4-12)
[2019-05-25 07:30] LABS: Calcium 8.3 MG/DL (8.5-10.1)
[2019-05-25] MEDS: POTASSIUM CHLORIDE 20 MEQ TABLET PO SCH ×3 (11:46→18:23)
[2019-05-25] MEDS: metroNIDAZOLE INJ 500 MG in PREMIX 1 EACH IV SCH ×2 (11:48→21:27)
[2019-05-25] MEDS: POTASSIUM CHLORIDE RIDER 10 MEQ in PREMIX 1 EACH IV PRN ×3 (13:03→16:21)
[2019-05-25] MEDS: ENOXAPARIN 40 MG/0.4 ML SYRINGE SUBCUT SCH (21:28)
[2019-05-26] MEDS: metroNIDAZOLE INJ 500 MG in PREMIX 1 EACH IV SCH ×3 (04:03→22:14)
[2019-05-26] MEDS: CIPROFLOXACIN INJ 400 MG in PREMIX 1 EACH IV SCH ×2 (04:03→15:58)
[2019-05-26 06:19] LABS: Basophils # 0.1 10*3/uL (0.0-0.2); Basophils % 1.4 % (0.0-0.8); Eosinophils # 0.3 10*3/uL (0.0-0.87); Eosinophils % 3.3 % (0.00-10.9); Immature Granulocytes % 0.4 %; Immature Granulocytes Absolute 0.03 #; Lymphocytes % 35.3 % (21.2-54.2); Mean Corpuscular HGB Conc 32.6 GM/DL (32-36); Mean Corpuscular Volume 90.9 FL (87-102); Mean Platelet Volume 10.8 FL (9.6-12.0); Monocytes % 10.7 % (1.7-12.7); Neutrophils % 48.9 % (38.7-73.9); Platelet Count 273 T/CUMM (130-400); Red Blood Count 4.73 MC/CUMM (3.8-5.5); White Blood Count 8.6 T/CUMM (4-12)
[2019-05-26 06:31] LABS: Osmolality,Calculated 274.7 MOS/KG (273-304)
[2019-05-26] MEDS: DEXTROSE 5% NACL 0.9% 1,000 ML IV SCH ×2 (08:38→18:18)
[2019-05-26] MEDS: ENOXAPARIN 40 MG/0.4 ML SYRINGE SUBCUT SCH (22:14)
[2019-05-27] MEDS: CIPROFLOXACIN INJ 400 MG in PREMIX 1 EACH IV SCH (04:12)
[2019-05-27] MEDS: metroNIDAZOLE INJ 500 MG in PREMIX 1 EACH IV SCH (05:35)
[2019-05-27 11:34] VITALS: BP 116/63
== END 2019-05-27 12:12 | disposition home or self-care (01) ==
LOC: N.EDINP 11:56 → N.ED 11:56 → SUATTDRO 15:12 → N.EDINP 15:42 → N.3E 16:14
PROVIDERS: ADMIT Internal Medicine Cardiovascular Disease; ATTEND Family Medicine